=== PATIENT | female | born 1940 | race Caucasian/White ===

== ENCOUNTER 2018-11-09 09:15 | Day surgery (SDC) | payer MEDICARE, BC ==
[~2018-11-09 09:15] MED LIST: Buffered Lidocaine 1% SYRIN* 1 ML/SYRINGE INTRADERM ONE; Dexamethasone IV* 4 MG/ML 1 ML (4 MG) IV SLOW PU ONE; Dexamethasone IV* 4 MG/ML 1 ML (4 MG) ONE; Famotidine IV* 10 MG/ML 2 ML (20 mg) IV ONE; Lactated Ringers 1000 ML Bag* 1,000 ML IV SCH
[2018-11-09] MEDS ORDERED: Famotidine IV* 10 MG/ML 2 ML (20 mg) ONE (09:41)
[2018-11-09] MEDS ORDERED: Midazolam* 1 MG/ML 2 ML VIAL (2 MG) ONE (11:00)
[2018-11-09] MEDS ORDERED: Propofol* 10 MG/ML 20 ML BTL ONE (11:00)
[2018-11-09] MEDS ORDERED: fentaNYL* 50 MCG/ML 2 ML VIAL (100 MCG VIAL) ONE (11:00)
[2018-11-09] MEDS ORDERED: Ondansetron INJ* 2 MG/ML VIAL ONE (11:00)
[2018-11-09] MEDS ORDERED: Naloxone* 0.4 MG/ML 1 ML VIAL IV PRN (11:21)
[2018-11-09] MEDS ORDERED: Bupivacaine 0.25% SDV* 30 ML ONE (11:29)
[2018-11-09] MEDS ORDERED: ceFAZolin 2 GM PREMIX in ORs 2 GM/50 ML BAG ONE (11:47)
[2018-11-09] MEDS ORDERED: Acetaminophen TAB* 325 MG ONE (13:07)
[2018-11-09 14:30] VITALS: BP 137/68
--- NOTE | 2018-11-09 19:59 | OP ---
DATE OF OPERATION: 11/09/18 - [facility] DATE OF : 36 SURGEON: Juliano Schmidt MD LIQU[facility] [employer] OPERATOR: RADHA Collins ANESTHESIOLOGIST: Dr. Ríos. ANESTHESIA: Local MAC. PRE-OP DIAGNOSES: 1. 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 2. Chronic left carpal tunnel syndrome and flexor tenosynovitis. POST-OP DIAGNOSES: 1. 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 2. Chronic left carpal tunnel syndrome and flexor tenosynovitis. OPERATIVE PROCEDURE: 1. Left carpal tunnel release. 2. Left flexor tendon tenosynovectomy. 3. Left middle trigger finger release. 4. Left ring trigger finger release. INDICATIONS: Ms. Warner has chronic carpal tunnel as well as chronic trigger fingers. These all resulted in stiffness in the hand as well as chronic pain and dysfunction of the hand. We had talked about her treatment options. She had wanted to proceed with surgery. She understands that aggressive physical therapy is going to be required to loosen up the hand after surgery. I did inject some chronic trigger fingers on the right and that has done pretty well also. ESTIMATED BLOOD LOSS: 2 mL. COMPLICATIONS: None. FINDINGS: See above and below. DESCRIPTION OF PROCEDURE: Ms. Warner was seen in the preoperative holding area. The correct site, side, and procedures were identified. We came back to the operating room. I anesthetized the operative area with 0.25% plain Marcaine. The arm was then prepped and draped in the usual fashion and a time- out was performed. The arm was exsanguinated with the Esmarch and the tourniquet was inflated to 250 mmHg. I first made an incision longitudinally in the proximal palm. This was brought back across the wrist in Kamille-type fashion. Dissection was carried down through the subcutaneous tissue. Full-thickness flaps were raised off the fascia. The transverse carpal ligament was released just off the radial aspect of the hook of the hamate. The release was completed distally with a tenotomy scissors utilizing the Uriel retractor for visualization. I then came proximally and released the remainder of the transverse carpal ligament in the distal antebrachial fascia to a level of several centimeters proximal to the wrist flexion crease. At this point, the carpal tunnel was very nicely decompressed. It was obvious where the chronic carpal tunnel had been in place. She had a very hourglass shaped median nerve that was very reddened through the compressed area. She had a lot of stiffness preoperatively, and so I wanted do what I could to try to help her loosen up the hand. I went ahead and performed a full flexor tenosynovectomy from the hand all the way into the carpal tunnel all the way to the distal forearm. This was all handed off as a specimen. It took quite some time, but we were able to strip the tendons until they were nice and clean. After the flexor tenosynovectomy had been performed, I went ahead and made a 1 cm longitudinal incision in the left middle finger over the A1 stephanie. Dissection was carried down and full-thickness flaps were bluntly raised off the tendon sheath. Ragnell retractors were placed. The A1 stephanie was released along the radial third longitudinally. The A0 stephanie proximal to that was all released. I released the leading edge of the A2 stephanie. The adhesions between the tendons were broken up. At this point, everything looked good. I then made a 1 cm incision over the left ring finger A1 stephanie in similar fashion. I raised full-thickness flaps. I released the A1 stephanie together with the fascia proximal as well as leading edge of the A2 stephanie. The adhesions between the tendons were . All the wounds were irrigated out at this point. All the wounds were closed with 4-0 nylon suture. The wounds were dressed with Xeroform, 4x4's, sterile Webril, and an Brian bandage. The tourniquet was deflated. The hand pinked up immediately. She was taken to the recovery room in stable condition. [id number]/[facility] #: [id number] KALYANI
== END 2018-11-09 13:31 | disposition home or self-care (01) ==
LOC: OREAST 09:15
PROVIDERS: ATTEND Orthopaedic Surgery Hand Surgery
DX: G56.02 Carpal tunnel syndrome, left upper limb (principal); M65.842 Other synovitis and tenosynovitis, left hand; M65.332 Trigger finger, left middle finger; M65.342 Trigger finger, left ring finger; M65.331 Trigger finger, right middle finger; I10 Essential (primary) hypertension; E78.5 Hyperlipidemia, unspecified; M19.90 Unspecified osteoarthritis, unspecified site; E03.9 Hypothyroidism, unspecified; H40.9 Unspecified glaucoma; Z88.2 Allergy status to sulfonamides
CPT/HCPCS: 88304; A9270-GY; J0690; J1100; J2250; J2405; J2704; J3010; J3490